=== PATIENT | male | born 1960 | race Caucasian/White ===

== ENCOUNTER 2021-01-17 15:11 | Emergency (ER) | payer BC, SELFPAY ==
[2021-01-17 15:15] VITALS: BP 124/87; PULSE 84; RESP 20; TEMP 36.9; O2SAT 97
[2021-01-17] MEDS: cefTRIAXone 1 GM VIAL IM (15:30)
--- NOTE | 2021-01-17 15:30 | ED.SKABFB ---
HPI - Skin/Abscess/Foreign Bdy General Stated complaint: dog bite Source: patient History of Present Illness HPI narrative: this is a 60-year-old gentleman with no significant past medical history presents after his pet dog bit his left anterior hand few days ago causing few puncture wounds that her her healing and has been having increased swelling and redness in his left hand has good range of motion strong brisk radial pulse on the right no numbness or tingling patient is not up-to-date with his tetanus and has been noticing that he could express a little yellow discharge from the wound area. complaint: other ( dog by) Onset (ago): day(s) Tetanus up to date: no Location: LUE Severity: moderate Quality: aching Pain Consistency: constant Exacerbating factors: none Context: none Associated symptoms: denies other symptoms Related Data Home Medications Medication Instructions Recorded Confirmed No Home Medications 01/17/21 01/17/21 Review of Systems Review of Systems: All systems reviewed & are unremarkable except as noted in HPI and below PMFSH Past Medical History Medical History Patient denies medical problems Exam Const: General: no acute distress and alert Orientation/consciousness: patient oriented x3 HENMT: Head: normal to inspection Eyes: Conjunctivae: conjunctivae normal Pupils: Equal, round and reactive pupils present EOM: EOMs intact bilaterally Neck: Neck: normal visual inspection, no lymphadenopathy and no meningeal signs Chest: Chest palpation & inspection: normal inspection of the chest Resp: Effort & Inspection: normal respiratory effort Cardio: Rate: regular rate Rhythm: regular rhythm GI: GI Palp: Yes Soft to palpation Percussion: Yes normal to percussion Skin: Other: warmth in tenderness with some erythema on the left anterior and Neuro: General: patient oriented x3 and moves all extremities Extrem: General: normal to inspection and no pedal edema Psych: Mental Status: mental status grossly normal Course Course Emergency Course: patient received Jose cell and received a dose of ceftriaxone. Critical Care Time Critical Care Time Critical Care Time: No Discharge Plan Discharge Clinical Impression: Dog bite Qualifiers: Encounter type: initial encounter Qualified Code(s): W54.0XXA - Bitten by dog, initial encounter Patient Disposition: Home, Self-Care Condition: Stable Instructions: Antibiotic Form, Animal Bite (ED), Cellulitis (ED) Additional Instructions: take medicine as prescribed and follow-up with primary care physician if symptoms persist or worsen. Prescriptions: New amoxicillin-pot clavulanate [Augmentin] 875-125 mg tablet 1 tablet PO Q12H Qty: 20 RF: 0 No Action No Home Medications RF: 0 Follow-up/Referrals: UNKNOWN,DOCTOR [Primary Care Provider] - Time of Disposition: 15:35
[2021-01-17 15:41] VITALS: BP 124/87; PULSE 83; RESP 20; TEMP 36.6; O2SAT 97
[2021-01-17] MEDS: TETANUS,DIPHTHERIA,AC PERTUSSIS ADULT 0.5 ML (ADACEL) IM (15:45)
== END 2021-01-17 15:46 | disposition home or self-care (01) ==
PROVIDERS: Emergency Provider Emergency Medicine
DX: S61.432A Puncture wound without foreign body of left hand, initial encounter (principal); W54.0XXA Bitten by dog, initial encounter
CPT/HCPCS: 90471; 90715; 96372; 99283; J0696; J1670

== ENCOUNTER 2022-11-05 12:21 | Emergency (ER) | payer BC, SELFPAY ==
--- NOTE | ~2022-11-05 | CT_ITS ---
EXAMINATION: CT abdomen pelvis wo con DATE: 11/05/2022 13:34 INDICATION: Flank pain TECHNIQUE: Computed tomography (CT) of the abdomen and pelvis was performed without intravenous contr ast. Automated exposure control and iterative reconstruction technique were employed. The dose-length product was 364.14 mGy-cm. COMPARISON: None FINDINGS: Emphysema and mild atelectasis at the bilateral lung bases. Heart size is normal. Atherosclerotic cor onary artery calcification. No pericardial or pleural effusion. Liver, gallbladder, spleen, pancreas and bilateral adrenal glands are normal. Bilateral renal cysts measuring 3.3 cm on the right and 1.2 cm on the left. 3 mm nonobstructing renal stone at the mid left kidney. No ureteral stones or hydrone phrosis. Bladder is normal. There is moderate sigmoid diverticulosis without adjacent inflammatory ch gabriella to suggest diverticulitis. No bowel obstruction. Normal appendix. Mild lumbar and lower thoraci c spondylosis. IMPRESSION: 1. 3 mm nonobstructing left renal stone. 2. Sigmoid diverticulosis. Reviewed, dictated and finalized at location A.
[2022-11-05 12:21] VITALS: BP 126/81; PULSE 72; RESP 20; TEMP 36.6; O2SAT 100
[2022-11-05 12:52] LABS: Appearance Urine Clear (Clear); Bilirubin Urine Negative (Negative); Blood Urine 1+ (Negative); Color Urine Yellow (Yellow); Glucose Urine UA Negative (Negative); Ketones Urine Negative (Negative); Leukocyte Esterase Ur Negative (Negative); Nitrate Urine Negative (Negative); Protein Urine Negative (Negative); Specific Grav Ur >= 1.030 (1.010-1.020); Urobilinogen Urine 0.2 mg/dL (0.2-1.0)
[2022-11-05 13:01] LABS: Add Urine Microscopic? YES; Amorphous Sediment Urine Few; Mucus Urine Few /lpf; RBC Urine 0-2 /hpf (0-2)
--- NOTE | 2022-11-05 13:07 | ED.ABDPAIN ---
HPI - Abdominal Pain General Chief Complaint: Abdominal Pain Stated Complaint: left side abdominal pain Time Seen by Provider: 11/05/22 13:00 Source: patient and RN notes reviewed Mode of arrival: ambulatory Limitations: no limitations History of Present Illness MD elicited complaint: flank pain Onset (ago): hour(s) (5) Pain Consistency: constant Location: LLQ and L flank Severity: moderate Quality: stabbing and sharp Radiation: none Migration to: no migration Exacerbating factors: movement Relieving factors: nothing Associated symptoms: chills Related Data Allergies Allergy/AdvReac Type Severity Reaction Status Date / Time No Known Allergies Allergy Verified 11/05/22 12:27 Review of Systems Review of Systems: All systems reviewed & are unremarkable except as noted in HPI and below PMFSH Past Medical History Medical History Patient denies medical problems Social History Social History (Updated 11/05/22 @ 13:11 by Jamshid Holguin MD) Smoking status: Never smoker Alcohol intake: never Substance use: never Exam Const: General: healthy appearing, no acute distress and alert Nutritional Appearance: well nourished Orientation/consciousness: patient oriented x3 Limitations: no limitations HENMT: Head: normal to inspection Ears: external ears normal Face/Nose/Sinus: Normal external nose present Face and sinus: normal facial exam Mouth: Yes moist mucous membranes Eyes: Conjunctivae: conjunctivae normal Pupils: Equal, round and reactive pupils present EOM: EOMs intact bilaterally Neck: Neck: normal visual inspection Resp: Effort & Inspection: normal respiratory effort Auscultation: clear to auscultation bilaterally Cardio: Rate: regular rate Rhythm: regular rhythm GI: GI Palp: Yes Soft to palpation, Yes Tenderness to palpation present (GI) ( mild left lower quadrant) and No Rebound tenderness present Auscultation: normal bowel sounds Back/Spine/Pelvis: Back: CVA tenderness ( mild on the left) Cervical Spine: cervical ROM normal Thoracic/Lumbar Spine: thoraco-lumbar ROM normal Skin: General skin exam: normal color Rashes: no rashes Neuro: General: patient oriented x3, moves all extremities, no focal motor deficits and CN's II-XI intact bilaterally Speech: normal speech Gait exam (Neuro): Normal gait present Extrem: General: normal to inspection and no clubbing, cyanosis or edema Psych: Mental Status: mental status grossly normal Affect: normal affect Attitude: cooperative Course Vital Signs Vital signs: Vital Signs Temperature 36.6 C 11/05/22 12:21 Pulse Rate 72 11/05/22 12:21 Respiratory Rate 20 11/05/22 12:21 Blood Pressure 126/81 11/05/22 12:21 Pulse Oximetry 100 11/05/22 12:21 Oxygen Delivery Room Air 11/05/22 12:21 Temperature 36.6 C 11/05/22 13:57 Pulse Rate 77 11/05/22 13:57 Respiratory Rate 18 11/05/22 13:57 Blood Pressure 136/70 11/05/22 13:57 Pulse Oximetry 100 11/05/22 13:57 Oxygen Delivery Room Air 11/05/22 13:57 MDM - Abdominal Pain Differential Diagnosis Differential diagnosis: Likely abdominal pain, calculus of kidney, diverticulitis, gastroenteritis and other ( electrolyte abnormality, anemia, UTI) Lab Data Attestation: I reviewed the patient's lab results. 11/05/22 13:19 11/05/22 13:19 Labs: Lab Results 11/05/22 11/05/22 11/05/22 Range/Units 12:28 13:19 13:19 WBC 14.1 H (4.8-10.8) K/mm3 RBC 4.70 (4.70-6.10) M/mm3 Hgb 14.6 (14.0-18.0) g/dL Hct 44.4 (40.0-54.0) % MCV 94.5 (78.0-102.0) fL MCH 31.1 H (27.0-31.0) pg MCHC 32.9 (32.0-36.0) g/dL RDW 14.4 (11.6-14.4) % Plt Count 300 (150-420) K/mm3 MPV 9.5 (8.7-11.0) fl Immature Gran % (Auto) 0.3 H (0.0-0.0) % Neut % (Auto) 83.7 H (50.0-70.0) % Lymph % (Auto) 8.7 L (18.0-42.0) % [place] % (Auto) 5.5 (2.0-11.0) % Eos
[2022-11-05 13:25] LABS: Basophils Absolute Auto 0.03 K/mm3 (0.00-0.10); Basophils Percent Auto 0.2 % (0.0-1.0); Eosinophils Absolute Auto 0.23 K/mm3 (0.02-0.50); Eosinophils Percent Auto 1.6 % (1.0-6.0); Hematocrit 44.4 % (40.0-54.0); Hemoglobin 14.6 g/dL (14.0-18.0); Immature Granulocyte Absolute 0.04 K/mm3 (0.00-0.00); Immature Granulocyte Percent A 0.3 % (0.0-0.0); Lymphocytes Absolute Auto 1.23 K/mm3 (1.10-4.50); Lymphocytes Percent Auto 8.7 % (18.0-42.0); Mean Corpuscular HGB Conc 32.9 g/dL (32.0-36.0); Mean Corpuscular Hemoglobin 31.1 pg (27.0-31.0); Mean Corpuscular Volume 94.5 fL (78.0-102.0); Mean Platelet Volume 9.5 fl (8.7-11.0); Monocytes Absolute Auto 0.77 K/mm3 (0.10-0.90); Monocytes Percent Auto 5.5 % (2.0-11.0); Neutrophils Absolute Auto 11.8 K/mm3 (1.7-7.2); Neutrophils Percent Auto 83.7 % (50.0-70.0); Platelet Count Result 300 K/mm3 (150-420); Red Cell Distribution Width 14.4 % (11.6-14.4); White Blood Count 14.1 K/mm3 (4.8-10.8)
[2022-11-05 13:40] LABS: Alanine Aminotransferase 21 U/L (16-63); Albumin Level 3.9 g/dL (3.4-5.0); Alkaline Phosphatase 69 U/L (46-116); Anion Gap 6 mmol/L (8-16); Aspartate Amino Transferase 18 U/L (15-37); Bilirubin,Total 0.4 mg/dL (0.00-1.00); Blood Urea Nitrogen 15 mg/dL (7-18); Calcium 8.9 mg/dL (8.5-10.1); Carbon Dioxide 28 mmol/L (21-32); Chloride 106 mmol/L (98-108); Estimated CRCL calculation 82 ml/min; Estimated Glomerular Filt Rate > 60; Glucose 94 mg/dL (70-99); Osmolality Calculated 290 mOsm/kg (285-295); Potassium 4.8 mmol/L (3.5-5.1); Sodium 140 mmol/L (136-145)
[2022-11-05 13:47] LABS: CRP < 0.5 mg/dL (0.0-0.9)
[2022-11-05 13:57] VITALS: BP 136/70; PULSE 77; RESP 18; TEMP 36.6; O2SAT 100
[2022-11-05] MEDS: ONDANSETRON HCL ODT 4 MG TABLET PO (14:08)
[2022-11-05] MEDS: KETOROLAC 30 MG/ML VIAL (*BKC) IM (14:08)
== END 2022-11-05 14:20 | disposition home or self-care (01) ==
PROVIDERS: Emergency Provider Emergency Medicine
DX: K57.92 Diverticulitis of intestine, part unspecified, without perforation or abscess without bleeding (principal)
CPT/HCPCS: 36415; 74176; 80053; 81001; 85025; 86140; 96372; 99284; A9270; J1885